=== PATIENT | male | born 1940 | race Caucasian/White ===

== ENCOUNTER 2020-05-14 03:19 | Outpatient (CLI) | payer OTHER, SELFPAY ==
--- NOTE | 2020-05-14 08:00 | DI.US_ITS ---
EXAM: US SCROTUM CLINICAL HISTORY: right testicular pain, no masses on exam,[id number],N50.819. TECHNIQUE: Scrotal ultrasound performed using grayscale, color-flow and spectral Doppler analysis. COMPARISON: No exams were available for comparison FINDINGS: Skin of the scrotum appears slightly thickened. Right hemiscrotum: The right testicle measures 4.3 x 3.2 x 3 5 centimetres There is no obvious focal intratesticular mass. Vascular flow is demonstrated in the right testicle. There are no epididymal head cyst. Small hydrocele no varicocele. Left hemiscrotum: Left testicle measures 4.6 x 3.7 x 3 point centimetres, also without evidence of ma sses nor epididymal head findings. No varicocele. No hydrocele. IMPRESSION: 1. No evidence of intratesticular mass or testicular torsion. 2. Small left hydrocele. No evidence of varicocele on either side. 3. There appears to be some skin thickening. DATA REPOSITORY: There
--- NOTE | 2020-05-14 08:00 | DI.CT_ITS ---
EXAM: CT ABDOMEN PELVIS W CLINICAL HISTORY: RLQ pain worse when standing, small RIH on exam,[id number]. TECHNIQUE: Imaging Protocol: Axial computed tomography images with coronal and sagittal reformatted images were created and reviewed CONTRAST MATERIAL: Intravenous: Omnipaque 100cc Oral: None COMPARISON: No exams were available for comparison FINDINGS: VISUALIZED LUNG BASES: No nodules nor pleural effusions evident. ABDOMEN: There is no ascites. LIVER: There is a subcapsular cyst in the left hepatic lobe which measures 1.5 by 1.0 centimetres. N o other focal hepatic findings. No dilatation of intrahepatic ducts. GALLBLADDER/BILIARY: No obvious gallbladder pathology. CBD is not dilated. There are 2 calcificatio ns in the pancreatic head which are intimately associated with the CBD but are probably adjacent to i t as post within the CBD given that the CBD is not dilated and in addition there are other multiple p arenchymal calcifications in the pancreas evident. PANCREAS: There is a cystic mass in the tail the pancreas which measures 2.6 by 1.6 by 1.6 centimetre s. Parenchymal calcifications are also noted in the tail the pancreas. There is a 2nd cystic lesion in the pancreas which is in the uncinate process. This measures 1.5 x 1.5 centimetres. There are f ew adjacent pancreatic calcifications also noted this level. There is no obvious regional adenopathy around the pancreas-retroperitoneum. SPLEEN: Spleen is not enlarged. No obvious intrasplenic lesions. Splenic and portal veins are paten t. ADRENALS: There are no significant adrenal masses. KIDNEYS: There parapelvic cysts in both kidneys. No solid masses. No calculi nor hydronephrosis.. No cortical cysts evident. ABDOMINAL AORTA: Abdominal aorta is not enlarged and there is no [id number] adenopat hy. ABDOMINAL WALL/GI: No evidence of significant anterior abdominal wall hernia. No evidence of signifi cant inguinal hernia. No bowel obstruction. PELVIS: GI: No evidence of appendicitis.No evidence of sigmoid diverticulitis. LYMPH NODES: There is no intrapelvic nor inguinal adenopathy. REPRODUCTIVE: Prostate gland is not enlarged. Seminal vesicles unremarkable. URINARY BLADDER: Small diverticulum on the left side of the urinary bladder which measures 1.5 x 1.0 centimetres. No obvious bladder wall mass evident. OSSEOUS: No significant osseous lesions. IMPRESSION: 1. There are 2 cystic masses in the pancreas as described above. The larger is in the pancreatic armand l and measures 26 x 16 x 16 millimeters and appears unilocular. The 2nd slightly smaller cystic mass is located in the uncinate process of the pancreas. 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 I note that this patient has multiple parenchymal calcifications in the pancreas which may be related to prior chronic inflammatory pancreatitis. Other consideration besides cystic neopl asm would be for postinflammatory intrapancreatic pseudocysts. Nevertheless, these pancreatic findin gs require close follow-up. There is no obvious regional adenopathy. No metastatic appearing lesion s in the liver. There is a small simple cyst in the liver noted, as described above., 2. There are benign parapelvic cysts in both kidneys. No solid renal masses. No hydronephrosis. 3. Small diverticulum on the left side of the urinary bladder noted. 4. Prostate gland size is upper normal. RADIATION DOSE DELIVERED: 1,235.43mGy.cm Total DLP DATA REPOSITORY: All CT scans at this facility are submitted to the National Radiology Data Registry (NRDR) Dose Index Registry (DIR) with the [employer] ([employer]). RADIATION OPTIMIZATION: All CT scans at this facility use at least one of these dose optimization te chniques: automated exposure control; mA and/or kV adjustment per patient size (includes targeted exa ms where dose is matched to clinical indication); or iterative reconstruction.
[2020-05-14] MEDS: Omnipaque 350 MG/ML 50 ML BTL IJ (09:48)
[2020-05-14] MEDS: Breeza Beverage 473 ML BTL PO (09:49)
[2020-05-14 10:19] LABS: CREATININE 1.27 mg/dL (0.70-1.30); Estimated GFR 54.71 (mL/min/1.73m2)
[2020-05-14] MEDS: Omnipaque 350 MG/ML 100 ML BTL IJ (11:14)
[2020-05-14] MEDS: Normal Saline - Diluent 50 ML VIAL IV (11:15)
== END 2020-05-14 03:39 ==
PROVIDERS: PCP Nurse Practitioner Family; Visit Provider Surgery
DX: R10.31 Right lower quadrant pain (principal); N28.1 Cyst of kidney, acquired; K86.2 Cyst of pancreas; N43.2 Other hydrocele; N50.811 Right testicular pain; Z01.812 Encounter for preprocedural laboratory examination
CPT/HCPCS: 74177; 76870; 82565; J3490; Q9967

== ENCOUNTER 2020-05-18 15:44 | Emergency (ER) | payer OTHER, SELFPAY ==
[2020-05-18 15:48] VITALS: BP 138/81; PULSE 105; RESP 18; TEMP 37; O2SAT 98
--- NOTE | 2020-05-18 16:01 | ED.GENADUL_ITS ---
Discharge Plan Disposition Patient Disposition: HOME Condition: Stable Discharge Details Clinical Impression: Arthritis of right knee, Right groin pain Primary Care Provider: Tirso Preciado ED Provider: Vikki Browne Home Meds and New Rx's Prescriptions: Continued simvastatin 40 mg tablet 40 mg PO DAILY RF: 0 fluorouracil 5 % cream 1 applic topical BID RF: 0 aspirin 81 mg tablet,delayed release (DR/EC) 81 mg PO DAILY RF: 0 Discharge Instructions Instructions: Osteoarthritis (ED), Groin Pain (ED), Scrotal Pain (ED) Additional Instructions: Alternate ice and heat to the affected area(s) several times daily for 20 minutes at a time. Take 500 mg of Tylenol every 4 hours as needed for pain. Take 600 mg of ibuprofen every 6 hours as needed for pain. Take the oxycodone for pain not relieved with Tylenol or Motrin. Call the [facility] tomorrow to schedule a follow-up appointment for reevaluation and for consideration for abdomen MRI for further evaluation of the cystic masses noted within your pancreas on your recent abdominal CT and for consideration for lumbar spine MRI for further evaluation of your right groin and scrotum pain to rule out possible nerve impingement. Return immediately to the emergency department if you develop any worsening or new concerning symptoms. Discharge Data Discharge Physician: Vikki Browne Medical Decision Making 79-year-old male with a history of BPH, hyperlipidemia presents with 2 and half weeks of right groin and scrotal pain and right knee pain. Patient has bilateral testicular tenderness but no evidence of cellulitis. Presentation not c onsistent with Margie's gangrene, prostatitis or epididymitis. No pain with range of motion of his hip or knee. No evidence of cellulitis to his right lower extremity. Neurovascular intact. No ligamentous instability. Had a recent negative outpatient scrotal ultrasound per general surgery. He also had a recent outpatient abdomen pelvis CT which noted IMPRESSION: 1. There are 2 cystic masses in the pancreas as described above. The larger is in the pancreatic tail and measures 26 x 16 x 16 millimeters and appears unilocular. The 2nd slightly smaller cystic mass is located in the uncinate process of the pancreas. Main consideration is for intra pancreatic cystic neoplasms. I note that this patient has multiple parenchymal calcifications in the pancreas which may be related to prior chronic inflammatory pancreatitis. Other consideration besides cystic neoplasm would be for postinflammatory intrapancreatic pseudocysts. Nevertheless, these pancreatic findings require close follow-up. There is no obvious regional adenopathy. No metastatic appearing lesions in the liver. There is a small simple cyst in the liver noted, as described above., 2. There are benign parapelvic cysts in both kidneys. No solid renal masses. No hydronephrosis. 3. Small diverticulum on the left side of the urinary bladder noted. 4. Prostate gland size is upper normal. Screening labs obtained and note a normal white blood cell count. His CRP is elevated to 2.59 which may be more of a inflammatory response. ESR within normal limits. Urinalysis negative for infection An x-ray of his right knee noted IMPRESSION: 1. Mild edema overlies a moderate-sized enthesophyte at the patellar attachment of the patellar tendon. Correlation with point tenderness is suggested to suggest enthesitis or in tongue related injury. No acute fracture. 2. Mild osteoarthritic changes within the medial compartment. Tiny joint effusion. Reviewed with orthopedics who noted that enthesophytes are usually not painful. Patient is not taking any medication for his symptoms at all and a dose of ibuprofen was given here with some relief. He refused oxycodone here. We will plan to treat right knee as possible arthritis at this time with alternating ice and heat, Tylenol and Motrin. A review of his abdomen and pelvis CT did not note any lumbar spine or hip abnormalities. Discussed with patient that he could consider an outpatient abdomen MRI for further evaluation of his pancreatic masses although clinically does not appear consistent with neoplasm as he has had no report of weight loss, fever, abdominal pain. He could also consider a lumbar spine MRI for further evaluation to rule out nerve impingement which could be causing his groin and scrotal pain but did not suspect an acute neurologic emergency as he has no complaint of saddle anesthesia, leg weakness or numbness or bowel or bladder incontinence and no focal deficits. [facility] Usual and customary return precautions given prior to discharge. Medical Records Medical records reviewed: Yes I reviewed the patient's medical records. Imaging Data Radiologic Study: Radiologist's impression: XR Right Knee Exam date and time: 05/18/2020 6:05 PM Age: 79 years old Clinical indication: Right; Patient HX: R knee pain; Additional info: R/O arthritis TECHNIQUE: Imaging protocol: XR Right knee. Views: 3 views. COMPARISON: No relevant prior studies available. FINDINGS: Bones/joints: No evidence for acute fracture or subluxation within the right knee. Mild osteoarthritic changes within the medial compartment. A broad-based enthesophyte is seen at the patellar attachment of the patellar tendon. A tiny chip suprapatellar joint effusion is seen. Soft tissues: Mild soft tissue edema is seen overlying the patellar tendon and the patellar enthesophyte. IMPRESSION: 1. Mild edema overlies a moderate-sized enthesophyte at the patellar attachment of the patellar tendon. Correlation with point tenderness is suggested to suggest enthesitis or in tongue related injury. No acute fracture. 2. Mild osteoarthritic changes within the medial compartment. Tiny joint effusion. Lab Data Lab results reviewed: Yes I reviewed the patient's lab results. Labs: Laboratory Tests Range/Units 05/18/20 05/18/20 05/18/20 16:00 16:13 16:13 WBC (4.4-10.8) 10^3/uL 10.25 RBC (4.36-5.78) 10^6/uL 5.68 Hgb (13.5-17.5) g/dL 16.4 Hct (40.0-50.0) % 49.0 MCV (80-95) fL 86.3 MCH (27.0-33.0) pg 28.9 MCHC (32.0-36.0) % 33.5 RDW (11.8-14.1) % 12.8 Plt Count (130-400) 10^3/uL 207 MPV (8.0-11.0) fL 9.6 Immature Gran % 0.3 Neutrophils % 76.2 Lymphocytes % 15.4 Monocytes % 7.1 Eosinophils % 0.8 Basophils % 0.2 Nucleated RBC % % 0 Absolute Neutrophils (1.2-6.7) 10^3/uL 7.81 H Absolute Lymphocytes (1.2-3.4) 10^3/uL 1.58 Absolute Monocytes (0.1-0.8) 10^3/uL 0.73 Absolute Eosinophils (0.0-0.7) 10^3/uL 0.08 Absolute Basophils (0.0-0.2) 10^3/uL 0.02 ESR (1-20) mm/hr Sodium (136-145) mmol/L 137 Potassium (3.5-5.1) mmol/L 3.6 Chloride (98-107) mmol/L 105 Carbon Dioxide (21.0-32.0) mmol/L 24.6 Anion Gap (3-11) mmol/L 7.4 BUN (7-18) mg/dL 22 H Creatinine (0.70-1.30) mg/dL 1.16 Estimated GFR/1.73 m2 (mL/min/1.73m2) >= 60.00 Glucose (74-106) mg/dL 197 H Calcium (8.5-10.1) mg/dL 8.8 Total Bilirubin (0.2-1.0) mg/dL 0.9 AST (15-37) U/L 10 L ALT (16-63) U/L 20 Alkaline Phosphatase (46-116) U/L 57 C-Reactive Protein (0.0-0.3) mg/dL 2.59 H Total Protein (6.4-8.2) g/dL 7.2 Albumin (3.4-5.0) g/dL 3.3 L Urine Color (Yellow) Urine Clarity (Clear) Urine pH (5-8) Ur Specific Gary (1.005-1.025) Urine Protein (Negative) mg/dL Urine Ketones (Negative) mg/dL Urine Blood (Negative) Urine Nitrite (Negative) Urine Bilirubin (Negative) Urine Urobilinogen (Up TO 0.2) EU/dL Ur Leukocyte Esterase (Negative) Urine RBC (0-2) HPF Urine WBC (0-5) HPF Ur Epithelial Cells (Negative) HPF Urine Crystals (Negative) HPF Urine Bacteria (Negative) HPF Urine Casts (Negative) LPF Urine Mucus (Negative) Ur Culture Indicated? Urine Glucose (Negative) mg/dL Range/Units 05/18/20 05/18/20 16:13 18:23 WBC (4.4-10.8) 10^3/uL RBC (4.36-5.78) 10^6/uL Hgb (13.5-17.5) g/dL Hct (40.0-50.0) % MCV (80-95) fL MCH (27.0-33.0) pg MCHC (32.0-36.0) % RDW (11.8-14.1) % Plt Count (130-400) 10^3/uL MPV (8.0-11.0) fL Immature Gran % Neutrophils % Lymphocytes % Monocytes % Eosinophils % Basophils % Nucleated RBC % % Absolute Neutrophils (1.2-6.7) 10^3/uL Absolute Lymphocytes (1.2-3.4) 10^3/uL Absolute Monocytes (0.1-0.8) 10^3/uL Absolute Eosinophils (0.0-0.7) 10^3/uL Absolute Basophils (0.0-0.2) 10^3/uL ESR (1-20) mm/hr 14 Sodium (136-145) mmol/L Potassium (3.5-5.1) mmol/L Chloride (98-107) mmol/L Carbon Dioxide (21.0-32.0) mmol/L Anion Gap (3-11) mmol/L BUN (7-18) mg/dL Creatinine (0.70-1.30) mg/dL Estimated GFR/1.73 m2 (mL/min/1.73m2) Glucose (74-106) mg/dL Calcium (8.5-10.1) mg/dL Total Bilirubin (0.2-1.0) mg/dL AST (15-37) U/L ALT (16-63) U/L Alkaline Phosphatase (46-116) U/L C-Reactive Protein (0.0-0.3) mg/dL Total Protein (6.4-8.2) g/dL Albumin (3.4-5.0) g/dL Urine Color (Yellow) Yellow Urine Clarity (Clear) Clear Urine pH (5-8) 5.5 Ur Specific Gary (1.005-1.025) >= 1.030 H Urine Protein (Negative) mg/dL Trace H Urine Ketones (Negative) mg/dL Trace H Urine Blood (Negative) Negative Urine Nitrite (Negative) Negative Urine Bilirubin (Negative) Negative Urine Urobilinogen (Up TO 0.2) EU/dL 0.2 Ur Leukocyte Esterase (Negative) Negative Urine RBC (0-2) HPF 0-2 Urine WBC (0-5) HPF 0-2 Ur Epithelial Cells (Negative) HPF Rare Urine Crystals (Negative) HPF Negative Urine Bacteria (Negative) HPF Negative Urine Casts (Negative) LPF Negative Urine Mucus (Negative) Negative Ur Culture Indicated? No Urine Glucose (Negative) mg/dL 250 H HPI General Mode of arrival: ambulatory . Date/Time Provider Initiated Documentation: 05/18/20 15:49 . Limitations to Documentation: no limitations . Information obtained by: patient . HPI Narrative: Patient is a 79-year-old male with a history of BPH, hyperlipidemia who presents with right groin and scrotal pain and right knee pain for the past 2 weeks. Patient states since just before Thanks[place] he noted some right groin and scrotal pain that is worse at nighttime. He was seen by general surgery and had an outpatient scrotal ultrasound which was negative and a CT abdomen and pelvis of which she does not yet know the result. He states his groin and scrotal pain started just a few days before his right knee pain. He states his right knee pain is the area bothering him the most and states it is mainly medially and radiates up his right thigh. He states the pain is worse when first stepping and weightbearing on his right leg and extends from his medial knee up his thigh. He states the pain is worse when walking on tippy toes so he has been walking on his heel for the past few weeks. He has not taken any medication for pain and see prefers not to take any medication. He denies any fever, vomiting, abdominal pain, dysuria, hematuria. He has chronic urinary frequency mainly during the nighttime due to his large prostate and states this is no worse than usual. He denies any known injury to his hip or knee. Patient is mainly followed at the [facility] and was advised to come here for further evaluation. Related Data Home Medications Medication Instructions Recorded Confirmed aspirin 81 mg tablet,delayed 81 mg PO DAILY 05/07/20 05/18/20 release fluorouracil 5 % topical cream 1 applic TOPICAL BID 05/07/20 05/18/20 simvastatin 40 mg tablet 40 mg PO DAILY 05/07/20 05/18/20 Allergies Allergy/AdvReac Type Severity Reaction Status Date / Time meperidine [From Demerol] AdvReac Severe makes me Verified 05/18/20 15:55 terrible sick General Stated Complaint: Orthopedic SHELBY: 3 Review of Systems All systems reviewed & are unremarkable except as noted in HPI and below Constitutional Constitutional: Reports as per HPI, Denies chills and Denies fever(s) Eyes Eyes: Denies blurry vision ENT Ears, Nose, Mouth, and Throat: Denies dizziness, Denies sore throat and Denies throat swelling Cardiovascular Cardiovascular: Denies chest pain and Denies dyspnea Respiratory Respiratory: Denies cough and Denies dyspnea Gastrointestinal Gastrointestinal: Denies abdominal pain, Denies diarrhea and Denies vomiting Genitourinary Genitourinary: Denies hematuria, Denies dysuria and Reports testicular pain Musculoskeletal Musculoskeletal: Denies back pain, Denies numbness and Reports other (Right groin and knee pain) Integumentary/Breasts Skin/Breast: Denies lesions and Denies rash Neurologic Neurologic: Denies dizziness, Denies localized weakness and Denies numbness Allergic/Immunologic Allergic/Immunologic: Denies throat swelling PFSH Medical History (Updated 05/18/20 @ 19:02 by Vikki Browne DO) Scrotal pain Surgical History (Updated 05/08/20 @ 14:02 by Juhi Mancini MD) H/O vasectomy History of surgery Vasectomy reversal Social History (Updated 05/08/20 @ 14:03 by Juhi Mancini MD) Smoking/Tobacco Use Status: Never Smoking risk assessment performed?: Yes Alcohol Intake: current Alcohol Intake frequency: a few times a week Drug use: Never Household members: spouse Do you feel safe at home: Yes Do you feel safe in your relationship?: Yes Exam Const General: cooperative, healthy appearing and no acute distress HENMT Head: normal to inspection Face and sinus: normal facial exam Eyes General: appearance normal, both eyes and all related structures EOM: EOM intact bilaterally Neck Neck: normal visual inspection and No submandibular swelling Lymphatic: no lymphadenopathy noted Chest Chest: normal inspection of the chest and no tenderness Resp Effort & Inspection: normal respiratory effort and able to speak in complete sentences Auscultation: clear to auscultation bilaterally Cardio Rate: regular rate Rhythm: regular rhythm GI Inspection: normal to inspection Palpation: soft, not firm, not rigid and nontender Auscultation: normal bowel sounds Male General Exam: Yes normal external exam Penis: normal penis Scrotum: scrotum normal, no ecchymosis, not edematous, not erythematous and no masses Testes: testicular tenderness bilaterally Back/Spine/Pelvis Thoracic/Lumbar Spine: thoracic and lumbar spine normal to inspection, No paraspinal tenderness, No thoracic spinal tenderness and No lumbar spinal tenderness Pelvis: no pain with anterior-posterior compression Skin General skin exam: no rashes or lesions noted Neuro General: patient alert, patient awake and patient oriented x3 Cognition: normal cognition Speech: speech normal Motor: muscle tone normal throughout Sensory Exam: no sensory deficits noted Extrem General: normal to inspection, full ROM, capillary refill normal, no calf tenderness bilaterally and no edema Other: No pain in right hip, knee, ankle or foot with range of motion. Right hip, knee and lower leg appear normal to inspection without evidence of ecchymosis, erythema, crepitus or tenderness to palpation. Right anterior and posterior drawer test negative. No pain with valgus or varus stress. Distal pulses intact. Psych Appearance: grossly normal Mental Status: mental status grossly normal Speech and Movement: speech and movement normal Affect: normal affect Course Vital Signs Vital signs: Vital Signs Temperature 98.6 F 05/18/20 15:48 Pulse 105 H 05/18/20 15:48 Respiratory Rate 18 05/18/20 15:48 Blood Pressure 138/81 05/18/20 15:48 Pulse Oximetry 98 05/18/20 15:48 Temperature 98.6 F 05/18/20 15:48 Temperature Source Skin 05/18/20 15:48 Pulse 105 H 05/18/20 15:48 Respiratory Rate 18 05/18/20 15:48 Respiratory Effort 05/18/20 15:56 Blood Pressure 138/81 05/18/20 15:48 Blood Pressure Position Sitting 05/18/20 15:48 Pulse Oximetry 98 05/18/20 15:48 Oxygen Delivery Method Room Air 05/18/20 15:48 Oxygen Flow Rate 0 05/18/20 15:48 Pain Level 9 05/18/20 15:48 Comment 05/18/20 15:48
[2020-05-18 16:27] LABS: Abs Immature Grans 0.03 10^3/uL (0.0-0.06); Absolute Basophil Count 0.02 10^3/uL (0.0-0.2); Absolute Eosinophil Count 0.08 10^3/uL (0.0-0.7); Absolute Lymphocyte Count 1.58 10^3/uL (1.2-3.4); Absolute Monocyte Count 0.73 10^3/uL (0.1-0.8); Absolute Neutrophil Count 7.81 10^3/uL (1.2-6.7); Basophils % 0.2; Eosinophils % 0.8; HGB 16.4 g/dL (13.5-17.5); Immature Grans % 0.3; Lymphocytes % 15.4; MCH 28.9 pg (27.0-33.0); MCHC 33.5 % (32.0-36.0); MCV 86.3 fL (80-95); MPV 9.6 fL (8.0-11.0); Monocytes % 7.1; Neutrophils % 76.2; Nucleated RBC 0 %; Platelet Count 207 10^3/uL (130-400); RBC 5.68 10^6/uL (4.36-5.78); RDW 12.8 % (11.8-14.1); RDW-SD 39.9 fL; WBC 10.25 10^3/uL (4.4-10.8)
[2020-05-18 16:37] LABS: C-Reactive Protein 2.59 mg/dL (0.0-0.3)
[2020-05-18 16:38] LABS: ALT 20 U/L (16-63); AST 10 U/L (15-37); Albumin 3.3 g/dL (3.4-5.0); Alkaline Phosphatase 57 U/L (46-116); Anion Gap 7.4 mmol/L (3-11); BUN 22 mg/dL (7-18); Bilirubin, Total 0.9 mg/dL (0.2-1.0); CO2 24.6 mmol/L (21.0-32.0); CREATININE 1.16 mg/dL (0.70-1.30); Calcium 8.8 mg/dL (8.5-10.1); Chloride 105 mmol/L (98-107); Glucose 197 mg/dL (74-106); Potassium 3.6 mmol/L (3.5-5.1); Sodium 137 mmol/L (136-145); Total Protein 7.2 g/dL (6.4-8.2)
[2020-05-18 16:57] LABS: ESR 14 mm/hr (1-20)
--- NOTE | 2020-05-18 17:30 | DI.RAD_ITS ---
EXAM: XR KNEE RT 3V AP,LAT,NIALL CLINICAL HISTORY: R knee pain, r/o arthritis. TECHNIQUE: 2D digital imaging was performed. COMPARISON: No exams were available for comparison FINDINGS: The joint spaces are well maintained. The bones are intact and normally mineralized. Enthesophytes are seen at the superior and inferior aspect of the anterior patella. No significant joint effusion is present. Mild soft tissue swelling is seen at the anterior knee. IMPRESSION: No acute abnormality. DATA REPOSITORY: RADIATION DOSE DELIVERED:
[2020-05-18] MEDS: Ibuprofen 600 MG TAB PO (17:55)
[2020-05-18] MEDS: Normal Saline Flush 10 ML SYR IVP (17:56)
--- NOTE | 2020-05-18 18:20 | DI.VRAD_ITS ---
PROCEDURE INFORMATION: Exam: XR Right Knee Exam date and time: 05/18/2020 6:05 PM Age: 79 years old Clinical indication: Right; Patient HX: R knee pain; Additional info: R/O arthritis TECHNIQUE: Imaging protocol: XR Right knee. Views: 3 views. COMPARISON: No relevant prior studies available. FINDINGS: Bones/joints: No evidence for acute fracture or subluxation within the right knee. Mild osteoarthritic changes within the medial compartment. A broad-based enthesophyte is seen at the patellar attachment of the patellar tendon. A tiny chip suprapatellar joint effusion is seen. Soft tissues: Mild soft tissue edema is seen overlying the patellar tendon and the patellar enthesophyte. IMPRESSION: 1. Mild edema overlies a moderate-sized enthesophyte at the patellar attachment of the patellar tendon. Correlation with point tenderness is suggested to suggest enthesitis or in tongue related injury. No acute fracture. 2. Mild osteoarthritic changes within the medial compartment. Tiny joint effusion. Dictated and Authenticated by: Palma Gagnon MD. Ordering:MONET Florez MD
[2020-05-18 18:28] LABS: Bilirubin Negative (Negative); Blood Negative (Negative); Clarity Clear (Clear); Glucose 250 mg/dL (Negative); Ketones Trace mg/dL (Negative); Leukocyte Esterase Negative (Negative); Nitrite Negative (Negative); Specific Gravity >= 1.030 (1.005-1.025); Urobilinogen 0.2 EU/dL (Up TO 0.2); pH 5.5 (5-8)
[2020-05-18 18:34] LABS: Bacteria Negative HPF (Negative); C & S Indicated? No; Casts Negative LPF (Negative); Crystals Negative HPF (Negative); Epithelial Cells Rare HPF (Negative); Mucus Negative (Negative); RBC 0-2 HPF (0-2); WBC 0-2 HPF (0-5)
== END 2020-05-18 19:45 | disposition home or self-care (01) ==
PROVIDERS: Emergency Provider Physician Assistant; PCP Nurse Practitioner Family
DX: M17.11 Unilateral primary osteoarthritis, right knee (principal); R10.31 Right lower quadrant pain; N50.82 Scrotal pain
CPT/HCPCS: 36415; 73562; 80053; 85652; 99284; 81003; 81015; 85025; 86140; 99285

== ENCOUNTER 2021-03-31 02:33 | Outpatient (CLI) | payer OTHER, SELFPAY ==
--- NOTE | 2021-03-31 | DI.MRI_ITS ---
Exam(s) MR CERVICAL SPINE WO EXAM: MR CERVICAL SPINE WO CLINICAL HISTORY: CERVICAL NECK PAIN,M48.02,CERVICAL SPINAL STENOSIS,[id number] TECHNIQUE: Multiplanar multisequence MRI of the cervical spine was performed without intravenous con trast. COMPARISON: MR MRI CERVICAL SPINE WO CONTRAST from 08/14/2020 MR MRI CERVICAL SPINE WO CONTRAST from 08/14/2020 FINDINGS: There has been interval multilevel surgery with removal of posterior osseous elements and fusion hard del rio posteriorly secured by multilevel bilateral intrapedicular screws. Some reversal of the normal curvature noted. No ominous osseous lesions. No evidence of osteomyelit is. No discitis. CERVICOMEDULLARY JUNCTION: Intact with no evidence of cerebellar tonsillar ectopia. No obvious abnor mality of the odontoid process. No evidence of Chiari 1 malformation. CERVICAL SPINAL CORD: There is no abnormal signal in the cervical spinal cord and no evidence of foca l cord atrophy nor focal cord swelling. OSSEOUS:There are no cervical fractures evident. No new listhesis. No significant osseous lesions i n the cervical vertebrae. INDIVIDUAL LEVELS: C2-3: Mild spinal canal stenosis. No disc herniation. No prominent foraminal stenosis. Mild increa sed signal in the cord. C3-4: Advanced chronic disc space narrowing. Post laminectomy and posterior fusion. Anterior osteop hytes. Posterior bony ridging. Moderate canal stenosis, although improved from pre-surgical study.. Some flattening of the cervical cord is noted.Moderate facet arthropathy. Foraminal stenosis. Mil d abnormal signal in the cord, consistent with an element of myelomalacia.. C4-5: Chronic disc space narrowing. Posterior laminectomy and posterior fusion. Improvement in thec al sac diameter compared to the prior preoperative MRI. Bridging anterior osteophytes. Central elva l dimensions lower normal.Mild facet arthropathy. Moderate foraminal stenosis bilaterally. C5-6: Also posterior laminectomy and posterior fusion at this level. Some improvement of the thecal sac caliber compared to the prior MRI. Volume loss of the cervical cord right greater than left and abnormal signal within the cord noted. There is chronic disc space narrowing. Anterior bridging ost eophytes-DISH type. Luschka joint osteophytes bilaterally. Abnormal signal evident in the spinal co rd and some cord atrophy evident. C6-7: 5 fusion at this level evident. No disc herniation no central canal stenosis. No abnormal sig nal in the cervical spinal cord at this level. No foraminal stenosis. C7-T1: Mild disc space narrowing. Symmetrical annular bulging but no dominant disc herniation or can al dimensions are lower normal at this level. Mild bilateral foraminal stenosisno foraminal stenosis . IMPRESSION: 1. Compared to prior MRI scan of August 2020 there has been interval multilevel decompression surgery from C3 through C6 with multilevel improved caliber of thecal sac. However, there is multilevel pers istent flattening-element of atrophy of the cervical spinal cord, this most evident at the C3-4 level . There is also subtle increased signal at multiple levels in the spinal cord consistent with myelit is. This is most evident at C5-6 level. Most probably consistent with chronic myelomalacia. 2. No evidence of acute spinal cord compression. 3. Multilevel significant foraminal narrowing evident. DATA REPOSITORY:
--- NOTE | 2021-03-31 15:14 | DI.VRAD_ITS ---
PROCEDURE INFORMATION: Exam: MR Cervical Spine Without Contrast Exam date and time: 03/31/2021 2:18 PM Age: 80 years old Clinical indication: Prior surgery; Surgery date: 1-6 months; Patient HX: Right hand/arm numbness since fusion TECHNIQUE: Imaging protocol: Multiplanar magnetic resonance images of the cervical spine without contrast. COMPARISON: 1. MRI CERVICAL SPINE WO CONTRAST 08/14/2020 2:51 PM 2. CR XR CERVICAL SPINE 2 OR 3 VIEWS 01/21/2021 9:17:52 AM FINDINGS: Vertebrae: In the interval since the prior MRI, the patient has undergone laminectomy and posterior fusion at C3 through C6, as seen on the plain film study 01/21/2021. Metallic hardware results in geometric distortion and signal dropout, degrading local image quality. Alignment of the cervical spine is unchanged, with mild reversal of the normal cervical lordosis. There is no evidence of acute subluxation. Spinal cord: Normal signal. No cord compression. C2-C3: Disc calcification with facet and uncovertebral joint hypertrophy. No significant spinal canal stenosis. Moderate to severe right and severe left neural foraminal narrowing. C3-C4: Status post laminectomy and posterior fusion. Significant improvement of thecal sac caliber as compared to the prior MRI. There remains volume loss of the cervical cord, with minimal increased T2 internal cord signal intensity appreciated consistent with myelomalacia. Severe left greater than right neural foraminal narrowing. C4-C5: Status post laminectomy and posterior fusion. Significant improvement of thecal sac caliber as compared to the prior MRI. Minimal persistent deformity of the cervical cord without abnormal internal cord signal intensity. Severe right and moderate to severe left neural foraminal narrowing. C5-C6: Status post laminectomy and posterior fusion. Significant improvement of thecal sac caliber as compared to the prior MRI. Volume loss of the cervical cord with right greater than left abnormal increased T2 signal intensity of the cord parenchyma. Mild bilateral neural foraminal narrowing. C6-C7: Partial ankylosis. No significant spinal canal stenosis. Minimal neural foraminal narrowing. C7-T1: Disc desiccation and loss of intervertebral disc space height with disc and endplate osteophyte disease. Bilateral facet hypertrophy. Mild narrowing of the spinal canal and lateral recesses. Moderate right and severe left neural foraminal narrowing. Other bones/joints: No marrow infiltrative changes are appreciated. There is multilevel partial ankylosis of the cervical spine, most prominent at the C6-C7 interspace. Soft tissues: Unremarkable. Vertebral arteries: Abnormal flow voids of the vertebral arteries are likely secondary to volumetric technique and slow flow; note is made of persistent appropriate flow voids at the V3 and visualized V4 segments as well as at the level of the basilar artery on the sagittal views. IMPRESSION: 1. Status post laminectomy and posterior fusion of C3 through C6, with significantly improved caliber of the thecal sac through these levels. 2. Persistent volume loss and deformity of the cervical cord with abnormal internal cord signal intensity at C5-C6 and, to a lesser degree, the C3-C4 level consistent with chronic myelomalacia. No evidence of acute cord compression. 3. Multilevel high-grade neural foraminal narrowing as detailed above. Dictated and Authenticated by: Garcia Alexander MD. Ordering:MARTIN Chahal MD
== END 2021-03-31 02:53 ==
PROVIDERS: PCP Nurse Practitioner Family; Visit Provider Nurse Practitioner Family
DX: M54.2 Cervicalgia (principal); G95.89 Other specified diseases of spinal cord; G04.89 Other myelitis; M50.31 Other cervical disc degeneration, high cervical region; M50.321 Other cervical disc degeneration at C4-C5 level
CPT/HCPCS: 72141